=== PATIENT | male | born 1955 | race Caucasian/White ===

== ENCOUNTER → 2017-02-15 | Outpatient (CLI) | payer OTHER | LOC: CAT 12:42 | DX: Z13.6 Encounter for screening for cardiovascular disorders (principal) ==

== ENCOUNTER 2020-07-03 13:29 | Emergency (ER) | payer BC, OTHER ==
[~2020-07-03] VITALS: Ht 182.9 cm; Wt 102.1 kg
[2020-07-03 13:50] LABS: URINE BILIRUBIN NEGATIVE (Negative); URINE BLOOD NEGATIVE (Negative); URINE CLARITY CLEAR; URINE COLOR YELLOW; URINE GLUCOSE-RANDOM* NEGATIVE (Negative); URINE KETONES NEGATIVE (Negative); URINE LEUKOCYTES-REFLEX NEGATIVE (Negative); URINE NITRITE-REFLEX NEGATIVE (Negative); URINE PROTEIN (DIPSTICK) NEGATIVE (Negative); URINE SPECIFIC GRAVITY 1.015 (1.005-1.035); URINE UROBILINOGEN 0.2 E.U./dl (0.2-1.0)
[2020-07-03 13:54] LABS: BASOPHILS 0.7 % (0.0-2.0); EOSINOPHILS 0.1 % (0.0-3.0); HEMATOCRIT 44.2 % (42.0-52.0); HEMOGLOBIN 15.2 gm/dL (14.0-18.0); LYMPHOCYTES 14.2 % (24.0-44.0); MCH 31.4 pg (26.0-34.0); MCHC 34.4 g/dL (28.0-37.0); MCV 91.2 fL (80.0-100.0); PLATELET COUNT 205 thou/uL (150-400); RBC 4.84 mil/uL (4.50-6.00); RDW 14.6 % (10.5-14.5); WBC 6.6 thou/uL (4.0-11.0)
[2020-07-03 14:01] LABS: ANION GAP 13 mmol/L (7-16); BUN 24 mg/dL (7-18); CALCIUM 8.7 mg/dL (8.5-10.1); CHLORIDE 103 mmol/L (98-107); CO2 22 mmol/L (21-32); CREATININE 1.2 mg/dL (0.7-1.3); GLUCOSE 137 mg/dL (74-106); POTASSIUM 3.7 mmol/L (3.5-5.1); SODIUM 138 mmol/L (136-145)
[2020-07-03 14:17] LABS: ALBUMIN 4.2 g/dL (3.4-5.0); SGOT 24 U/L (15-37); SGPT 51 U/L (30-65); TOTAL BILIRUBIN 0.6 mg/dL (0.2-1.0); TROPONIN-I <0.06 ng/mL (<0.06)
[2020-07-03 17:30] VITALS: BP 125/70
[2020-07-03] MEDS ORDERED: DIFLUCAN100 MG PO (17:31)
[2020-07-03] MEDS ORDERED: LIDOCAINE40 MG/1 ML PO (17:31)
[2020-07-03] MEDS ORDERED: MAALOX ADVANCE355 ML PO (17:31)
--- NOTE | 2020-07-05 16:00 | EKG ---
[facility] [place] [address] ELECTROCARDIOGRAM REPORT Name: MANDI MCKENZIE Room #: DEP [facility].#: [id number] Admission: 07/03/20 Attend Phys: Discharge: 07/03/20 Date of : 53 Report #: [id number] THIS REPORT FOR: cc: Isac Mckeon MD, Brian G. 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 : 1955 Requested By: Annelise Perez Order Number: [id number] MD: Kaveh Humphrey Measurements Intervals [place] Rate: 70 P: 51 MS: 160 QRS: 85 QRSD: 107 T: -16 QT: 383 QTc: 414 Interpretive Statements Sinus rhythm Borderline right axis deviation Borderline repolarization abnormality Baseline wander in lead(s) V4 No previous ECG available for comparison Electronically Signed On 07-05-2020 16:00:41 CDT by Kaveh Humphrey [email or web address] <ELECTRONICALLY SIGNED> By: Kaveh Humphrey MD 07/05/20 1600 1341 1341 Kaveh Humphrey MD /EPI
== END 2020-07-03 17:30 | disposition home or self-care (01) ==
LOC: ER 13:29
PROVIDERS: Emergency Medicine
DX: K21.0 Gastro-esophageal reflux disease with esophagitis (principal); R20.2 Paresthesia of skin; Z96.653 Presence of artificial knee joint, bilateral; Z90.49 Acquired absence of other specified parts of digestive tract